=== PATIENT | female | born 1985 | race Caucasian/White ===

== ENCOUNTER 2019-06-27 19:57 | Emergency (ER) | payer BC, MEDICAID ==
[~2019-06-27] VITALS: Ht 162.6 cm; Wt 52.0 kg
[~2019-06-27 19:57] MED LIST: IBUP-1222 PO; OXYC-302 PO; PREN1TAB60 PO
--- NOTE | 2019-06-27 20:11 | NUR ---
ÁNGEL. REPORT RECEIVED FROM EMS. +ETOH. POSSIBLE OVERDOSE(LORAZEPAM) AND SI PER PT'S . HX OF ETOH ABUSE. PT'S AOX1. RESPS EVEN AND UNLABORED. ALL MONITORS IN PLACE. CALL LIGHT WITHIN REACH. PT'S AT BEDSIDE AT THIS TIME.
--- NOTE | 2019-06-27 20:49 | NUR ---
LAB AT BEDSIDE AT THIS TIME.
[2019-06-27 21:06] LABS: ALANINE AMINOTRANSFERASE 201 U/L (12-78); ALBUMIN 4.4 g/dL (3.4-5.0); ANION GAP 11 mmol/L (5-15); CALCIUM 8.7 mg/dL (8.5-10.1); CHLORIDE 106 mmol/L (98-107); CREATININE 0.82 mg/dL (0.55-1.02)
[2019-06-27 21:11] LABS: ALKALINE PHOSPHATASE 73 U/L (45-117); BILIRUBIN,TOTAL 0.4 mg/dL (0.2-1.0); TOTAL PROTEIN 8.8 g/dL (6.4-8.2)
[2019-06-27 21:27] LABS: BASOPHILS # (AUTO) 0.02 x10^3/uL (0-0.1); BASOPHILS % (AUTO) 1 % (0-1); EOSINOPHILS # (AUTO) 0.05 x10^3/uL (0-0.4); EOSINOPHILS % (AUTO) 1 % (1-7); LYMPHOCYTES # (AUTO) 1.68 x10^3/uL (1-3.4); LYMPHOCYTES % (AUTO) 36 % (22-44); MD SCAN; MEAN CORPUSCULAR HEMOGLOBIN 32.8 pg (27.0-34.8); MEAN CORPUSCULAR HGB CONC 33.4 g/dL (32.4-35.8); MEAN CORPUSCULAR VOLUME 98.2 fL (80-100); MEAN PLATELET VOLUME 9.2 fL (7.4-10.4); MONOCYTES # (AUTO) 0.47 x10^3/uL (0.2-0.8); MONOCYTES % (AUTO) 10 % (2-9); NEUTROPHILS % (AUTO) 53 % (42-75); PLATELET COUNT 75 x10^3/uL (130-400); RED BLOOD COUNT 4.72 x10^6/uL (3.82-5.3); RED CELL DISTRIBUTION WIDTH 16.8 % (9.6-15.2)
--- NOTE | 2019-06-27 21:50 | NUR ---
pt sleeping in [place]. resps even and unlabored. all monitors in place. call light within reach. pt's at bedside.
--- NOTE | 2019-06-27 22:30 | NUR ---
pt sleeping in [facility]. resps even and unlabored. all monitors in place. call light within reach.
--- NOTE | 2019-06-27 23:14 | NUR ---
PT RESTING IN [facility]. PT'S AOX4 AT THIS TIME. RESPS EVEN AND UNLABORED. ALL MONITORS IN PLACE. CALL LIGHT WITHIN REACH.
--- NOTE | 2019-06-27 23:56 | NUR ---
PT STATES " I NEED MORE TIME TO WALK." PA NOTIFIED.
--- NOTE | 2019-06-28 01:03 | NUR ---
ASSUMED CARE OF PATIENT. REPORT GIVEN FROM AIDEE THOMPSON. VS STABLE. PT USED BEDSIDE COMMODE WITH TWO PERSON ASSIST. BOYFRIEND AT BEDSIDE. CALL LIGHT IN PLACE. WILL CONTINUE TO MONITOR.
--- NOTE | 2019-06-28 02:15 | NUR ---
DENIES PT IS SI. ALSO HAD LORAZPAM BOTTLE AND SAYS PILLS ARE ALL STILL IN BOTTLE. REPORTS PT HAS HAS BEEN TO REHAB FOR ETOH IN THE PAST. PROVIDER AWARE.
--- NOTE | 2019-06-28 02:45 | NUR ---
pt resting in room. regular resp. no acute distress noted. call light in place. at bedside. will continue to monitor.
--- NOTE | 2019-06-28 03:40 | NUR ---
PT DENIES SI. PT IS A&O X4.
--- NOTE | 2019-06-28 03:50 | NUR ---
PT ABLE TO SAFELY AMBULATE AROUND ROOM. PT DRESSED SELF. PT A&OX4. IS OKAY WITH TAKING PATIENT HOME. DR MILLER HAS UPDATED PATIENT AND . PT DISCHARGED BY DR MILLER.
[2019-06-28 03:51] VITALS: BP 127/83
== END 2019-06-28 03:55 | disposition home or self-care (01) ==
LOC: ED 20:53
DX: F10.120 Alcohol abuse with intoxication, uncomplicated (principal); Y90.0 Blood alcohol level of less than 20 mg/100 ml
CPT/HCPCS: 36415; 80053; 80307; 84703; 85025; 99283